=== PATIENT | female | born 1990 | race African-American/Black ===

== ENCOUNTER 2017-06-11 08:24 | Emergency (ER) | payer BC ==
[~2017-06-11] VITALS: Ht 167.6 cm; Wt 125.0 kg
[~2017-06-11 08:24] MED LIST: FLAGYL500 MG PO; LORTAB 5-325 M1 EACH PO; NAPROSYN500 MG PO; SPRINTEC1 EACH PO
[2017-06-11 09:28] LABS: BILIRUBIN NEGATIVE; BLOOD NEGATIVE; COLOR YELLOW ((YELLOW)); GLUCOSE (STRIP) NEGATIVE; KETONES NEGATIVE; LEUKOCYTES NEGATIVE; NITRITE NEGATIVE; PROTEIN (STRIP) NEGATIVE; SPECIFIC GRAVITY 1.019 (1.000-1.030); UROBILINOGEN 0.2 MG/DL (0.2-1.0)
[2017-06-11 09:32] LABS: ADD MIUA? NO
[2017-06-11 09:43] LABS: HEMATOCRIT 38.8 % (36.0-46.0); MCH 28.8 PG (29.0-34.0); MCV 87.2 FL (83-99); MEAN PLAT.VOLUME 10.2 uM^3 (9.5-12.4); PLATELET COUNT 164 K/uL (156-360); RBC DIS.WIDTH-SD 38.8 % (39-53); RED BLOOD COUNT 4.45 M/uL (3.80-5.20); WHITE BLOOD COUNT 9.8 K/uL (4.1-10.2)
[2017-06-11 09:54] LABS: CHLORIDE 106 mEq/L (99-109); POTASSIUM 4.1 mEq/L (3.7-5.4); SODIUM 136 mEq/L (136-147)
[2017-06-11 09:56] LABS: GLUCOSE 97 mg/dL (70-99)
[2017-06-11 09:57] LABS: ANION GAP 5 MEQ/L (2-14)
[2017-06-11 09:58] LABS: TOTAL BILIRUBIN 0.4 mg/dL (0.0-1.0)
[2017-06-11 09:59] LABS: ALKALINE PHOSPHATASE 76 IU/L (3-129)
[2017-06-11 10:00] LABS: GFR ESTIMATE (CALCULATED) > 59 mL/min/
[2017-06-11 10:01] LABS: UREA NITROGEN (BUN) 11 mg/dL (9-23)
[2017-06-11 10:03] LABS: LIPASE 13 U/L (1.0-51.0)
[2017-06-11] MEDS ORDERED: ZOFRAN ODT4 MG PO (12:25)
[2017-06-11 12:46] VITALS: BP 136/67
== END 2017-06-11 12:47 | disposition home or self-care (01) ==
LOC: EME 08:24
PROVIDERS: Physician Assistant
DX: O30.041 Twin pregnancy, dichorionic/diamniotic, first trimester (principal); O26.891 Other specified pregnancy related conditions, first trimester; R11.0 Nausea; Z3A.08 8 weeks gestation of pregnancy; J45.909 Unspecified asthma, uncomplicated
CPT/HCPCS: 76801; 76802; 80053; 81003; 83690; 84702; 85027; 99281; 99284